=== PATIENT | female | born 1950 | race Caucasian/White ===

== ENCOUNTER 2016-08-23 13:30 | Emergency (ER) | payer OTHER ==
[~2016-08-23] VITALS: Ht 167.6 cm; Wt 81.6 kg
[~2016-08-23 13:30] MED LIST: ASPIRIN CHILDRE80 MG; CELEXA10 MG; HYDROCHLOROTHIA25 MG PO; HYDROCODONE BIT1 T11 PO; LISINOPRIL20 MG; NAPROSYN500 MG PO; NORVASC10 MG; VICODIN ES 7501 TA1 PO; ZOFRAN8 MG PO
[2016-08-23] MEDS ORDERED: PLAVIX75 M1 PO (13:37)
[2016-08-23] MEDS ORDERED: VITAMINS FOR HA1 CAP PO (13:38)
[2016-08-23] MEDS ORDERED: TRIAMTERENE AND1 TAB PO (13:39)
[2016-08-23 14:01] LABS: BASO % 0.3 % (0.0-1.0); EOS # 0.2 10*3/uL (0.0-0.4); EOS % 2.6 % (1.0-4.0); HEMATOCRIT 39.9 % (37.0-47.0); HEMOGLOBIN 13.5 g/dl (12.0-16.0); LYMPH # 1.6 10*3/uL (1.3-4.4); LYMPH % 20.5 % (27.0-41.0); MEAN CELL VOLUME 93.9 fl (81.0-99.0); MEAN CORPUSCULAR HGB 31.8 pg (27.0-31.0); MEAN CORPUSCULAR HGB CONC 33.8 g/dl (33.0-37.0); MONO % 12.7 % (3.0-9.0); NEUT # 4.9 10*3/uL (2.3-7.9); NEUT % 63.8 % (47.0-73.0); PLATELET COUNT AUTOMATED 248 10*3/uL (130-400); RED BLOOD COUNT 4.25 10*6/uL (4.10-5.10); RED CELL DISTRI WIDTH 13.2 % (0-14.5); WHITE BLOOD COUNT 7.6 10*3/uL (4.8-10.8)
[2016-08-23 14:15] LABS: ALBUMIN 3.2 gm/dl (3.1-4.5); BILIRUBIN, TOTAL 0.2 mg/dl (0.2-1.0); POTASSIUM 3.9 mmol/L (3.5-5.1); TOTAL PROTEIN 6.3 gm/dL (6.4-8.2)
[2016-08-23] MEDS ORDERED: LOMOTIL 0.025 M1 TA1 PO (14:40)
== END 2016-08-23 15:29 | disposition home or self-care (01) ==
LOC: ED 13:30
PROVIDERS: Nurse Practitioner Family
DX: E86.0 Dehydration (principal); R19.7 Diarrhea, unspecified; R03.0 Elevated blood-pressure reading, without diagnosis of hypertension; Z79.899 Other long term (current) drug therapy

== ENCOUNTER → 2016-08-27 | Outpatient (CLI) | payer OTHER ==
[~2016-08-27] MED LIST changes: +CIPRO500 MG PO; +LOMOTIL 0.025 M1 TA1 PO; +PLAVIX75 M1 PO; +TRIAMTERENE AND1 TAB PO; +VITAMINS FOR HA1 CAP PO
== END | disposition home or self-care (01) ==
LOC: RAD 13:23
DX: Z13.820 Encounter for screening for osteoporosis (principal); N95.9 Unspecified menopausal and perimenopausal disorder; M48.56XA Collapsed vertebra, not elsewhere classified, lumbar region, initial encounter for fracture

== ENCOUNTER 2016-08-29 18:16 | Emergency (ER) | payer OTHER ==
[~2016-08-29] VITALS: Ht 170.1 cm; Wt 81.6 kg
[~2016-08-29 18:16] MED LIST changes: -CIPRO500 MG PO
[2016-08-29 18:51] LABS: BASO % 0.4 % (0.0-1.0); EOS # 0.3 10*3/uL (0.0-0.4); EOS % 2.6 % (1.0-4.0); HEMATOCRIT 42.7 % (37.0-47.0); HEMOGLOBIN 14.4 g/dl (12.0-16.0); LYMPH # 2.6 10*3/uL (1.3-4.4); LYMPH % 25.9 % (27.0-41.0); MEAN CELL VOLUME 94.3 fl (81.0-99.0); MEAN CORPUSCULAR HGB 31.8 pg (27.0-31.0); MEAN CORPUSCULAR HGB CONC 33.7 g/dl (33.0-37.0); MONO # 0.8 10*3/uL (0.1-1.0); NEUT # 6.3 10*3/uL (2.3-7.9); NEUT % 62.9 % (47.0-73.0); PLATELET COUNT AUTOMATED 307 10*3/uL (130-400); RED BLOOD COUNT 4.53 10*6/uL (4.10-5.10); RED CELL DISTRI WIDTH 13.2 % (0-14.5)
[2016-08-29 19:06] LABS: ALBUMIN 3.7 gm/dl (3.1-4.5); ALKALINE PHOSPHATASE 120 U/L (45-117); BILIRUBIN, TOTAL 0.3 mg/dl (0.2-1.0); BUN 16 mg/dl (7-24); CARBON DIOXIDE 28 mmol/L (21-32); CHLORIDE 99 mmol/L (98-107); EST GLOM FILT AFRICAN AMERICAN > 60 ml/min; GLUCOSE 102 mg/dL (65-99); POTASSIUM 4.9 mmol/L (3.5-5.1); SGOT/AST 27 IU/L (3-35); SGPT/ALT 50 U/L (12-78); SODIUM 137 mmol/L (136-145); TOTAL PROTEIN 7.1 gm/dL (6.4-8.2)
[2016-08-29] MEDS ORDERED: CIPRO500 MG PO (19:32)
[2016-08-29 19:57] LABS: BILIRUBIN NEGATIVE (NEGATIVE); BLOOD NEGATIVE (NEGATIVE); CLARITY SL CLOUDY (CLEAR); COLOR YELLOW (YELLOW); GLUCOSE NEGATIVE (NEGATIVE); KETONE NEGATIVE (NEGATIVE); LEUKO ESTERASE 3+ (NEGATIVE); NITRITE NEGATIVE (NEGATIVE); PH 5.5 (5.0-9.0); PROTEIN NEGATIVE (NEGATIVE); UROBILINOGEN 0.2 E.U./dl (0.2-1.0)
[2016-08-29 20:04] LABS: BACTERIA 1+; URINE REFLEX COMMENT YES (NO)
[2016-08-29 20:05] LABS: WBC 41-50 wbc/hpf (0-5)
== END 2016-08-29 19:44 | disposition home or self-care (01) ==
LOC: ED 18:16
PROVIDERS: Registered Nurse
DX: R19.7 Diarrhea, unspecified (principal); N30.00 Acute cystitis without hematuria; Z79.899 Other long term (current) drug therapy

== ENCOUNTER → 2016-08-31 | Outpatient (CLI) | payer OTHER ==
[~2016-08-31] MED LIST changes: +CIPRO500 MG PO
[2016-09-02 18:09] LABS: FECAL WBC Final report (None Seen)
== END | disposition home or self-care (01) ==
LOC: LAB 07:57
PROVIDERS: Registered Nurse
DX: R19.7 Diarrhea, unspecified (principal)

== ENCOUNTER → 2016-09-10 | Outpatient (CLI) | payer OTHER | END | disposition home or self-care (01) | LOC: MRI 14:45 | DX: S32.030A Wedge compression fracture of third lumbar vertebra, initial encounter for closed fracture (principal); M47.896 Other spondylosis, lumbar region; M48.06 Spinal stenosis, lumbar region ==

== ENCOUNTER → 2019-02-01 | Outpatient (CLI) | payer MEDICARE, OTHER ==
[~2019-02-01] MED LIST changes: -ASPIRIN CHILDRE80 MG; +ASPIRIN CHILDRE81 MG PO; -CELEXA10 MG; +CELEXA10 MG PO; +DOXYCYCLINE100 M3 PO; +FUROSEMIDE20 M1 PO; -LISINOPRIL20 MG; +LISINOPRIL20 MG PO; +LOSARTAN POTAS100 M1 PO; -NORVASC10 MG; +NORVASC10 MG PO; +POTASSIUM CHLO10 ME5 PO; +PRAVASTATIN SOD40 MG PO; +PREDNISONE10 MG PO
== END | disposition home or self-care (01) ==
LOC: RAD 10:26
DX: R09.89 Other specified symptoms and signs involving the circulatory and respiratory systems (principal)

== ENCOUNTER 2019-02-04 07:54 | Inpatient (IN) | payer MEDICARE, OTHER ==
[~2019-02-04] VITALS: Ht 167.6 cm; Wt 83.1 kg
--- NOTE | ~2019-02-04 | CON ---
[place], [place] REPORT OF CONSULTATION NAME: CATIE BARNARD [facility] #: [id number] UNIT #: [id number] ROOM: 528 DOCTOR: CASSANDRA GROSS MD BIRTHDATE: [birth year] DOS: 02/05/2019 PULMONARY CONSULTATION, EVALUATION AND MANAGEMENT CONSULTATION REQUESTED BY: Hospitalist. REASON FOR CONSULTATION: For the assessment of cough, abnormal CT scan of the chest findings. HISTORY OF PRESENT ILLNESS: This is a 68-year-old white female patient who has been noted ill since 09/2018. The patient has been reporting a cough with minimal sputum expectoration. The coughing has been noted frequently. She has also developed symptoms of increased wheezing with chest tightness and shortness of breath. She presented to the Emergency Room yesterday and has been admitted to the hospital for further care. The cough has been noted with minimal amount of sputum expectoration at the present time. She has been treated with several times with corticosteroids and the antibiotic with partial reduction in respiratory symptoms, but the respiratory symptoms returned and has not completely resolved for the past few months. REVIEW OF SYSTEMS: CONSTITUTIONAL SYMPTOMS: Fatigue and tiredness noted without any symptoms of fever or chills. EYES: Denies burning, redness, or tenderness. EARS, NOSE, THROAT SYMPTOMS: Denies sore throat, hoarseness, otalgia, postnasal drainage or epistaxis. CARDIOVASCULAR SYSTEM: Denies angina pain, edema, or pain of the lower extremities. GASTROINTESTINAL SYMPTOMS: Denies dysphagia, nausea, vomiting, diarrhea, abdominal pain, hematemesis, melena, or hematochezia. SKIN: Denies abnormal lesions or rashes. CENTRAL NERVOUS SYSTEM: No dizziness, headache, diplopia, or syncopal episodes. The patient has been known with past history of CVA. PAST MEDICAL HISTORY: Known with: 1. History of essential hypertension. 2. Osteoarthritis. 3. Psoriasis. 4. History of depression. 5. Past history of CVA without any known residual neurologic deficit. SOCIAL HISTORY: The patient was noted nonsmoker lifetime. Denies any history of alcohol use or illicit drug use. She does have 1 daughter. PAST SURGICAL HISTORY: Reported as: 1. History of hysterectomy. 2. Hip replacement. FAMILY HISTORY: The patient's father with complication of Parkinsonism. Mother with complications of congestive heart failure and coronary artery [place], [place] REPORT OF CONSULTATION NAME: CATIE BARNARD UNIT #: [id number] ROOM: 528 DOCTOR: PASCUAL HOGUE MD,CASSANDRA BIRTHDATE: [birth year] disease. HOME MEDICATIONS: Listed as aspirin, ciprofloxacin, citalopram, Plavix, Lomotil, lisinopril, multivitamin, triamterene/hydrochlorothiazide combination and multivitamins. MEDICATIONS: Current medications, which were administered on this hospitalization were noted as use of lisinopril, citalopram, Norvasc, hydrochlorothiazide with triamterene, Plavix, Lovenox, Mucinex, Solu-Medrol 40 mg IV b.i.d., DuoNeb q.6 hours, Levaquin, and some other meds. DRUG ALLERGIES: No known drug allergies. PHYSICAL EXAMINATION: GENERAL: A 68-year-old female patient who has been noted currently awake and alert without any distress. Height of 5 feet 6 inches, weight 183 pounds, BMI 29.5. VITAL SIGNS: For the patient recorded as a normal temperature, respiratory rate 20, heart rate 106, blood pressure 132/60. Pulse oxygen saturation recorded at room air 96% saturation. HEENT: Examination shows head was atraumatic. Eyes nonicterus. NECK: Supple. CARDIOVASCULAR SYSTEM: S1, S2 audible. LUNGS: The patient had reduction in breath sounds. There were no wheezes or crackles. ABDOMEN: Soft, nontender. Bowel sounds present. EXTREMITIES: No new change. MUSCULOSKELETAL: Without acute deformity. VISIBLE SKIN: No lesions and rashes. CENTRAL NERVOUS SYSTEM: No apparent focal neurologic deficit. LABORATORY DATA: The patient's CBC done yesterday; WBC count normal, hemoglobin and hematocrit normal, platelet count normal. PT/PTT noted as normal. Lactic acid 1.1. CMP that was done yesterday noted as normal BUN and creatinine, sodium 135. Remaining electrolytes were normal. Urine culture noted no bacterial growth from yesterday. CBC this morning; WBC count was normal. PT/PTT repeated again normal today. CMP this morning, sodium was still noted low at 124. The chest x-ray that was done on 02/01/2019 ordered by her primary care physician was noted without any acute visible pulmonary infiltrates. Chest x-ray yesterday shows no acute abnormalities. CT scan of the chest that was done yesterday was personally reviewed. There was no evidence of pulmonary embolism. The patient was noted with a small pulmonary nodule 5 mm or less scattered in the lung, but mostly in the subpleural distribution noted in the lungs bilaterally. In addition to that, there was lymphadenopathy noted in the mediastinum as well as in the hilar area bilaterally as well, which may be considered pathological. Some lymph nodes were also described present in the left axilla as well. Small hiatal hernia was also seen. IMPRESSION: 1. The patient who has been currently admitted to the hospital with progressive [place], [place] REPORT OF CONSULTATION NAME: CATIE BARNARD UNIT #: [id number] ROOM: 528 DOCTOR: PASCUAL HOGUE MD,[facility] BIRTHDATE: [birth year] cough, which has been noted chronic several months with suspected mucus impaction of the airways. Lymphadenopathy, small nodule at least with the distribution of the nodule. Lymphadenopathy, possible consideration of sarcoidosis; however, malignant conditions should be considered and excluded appropriately in view of the hyponatremia. Other causes of hyponatremia, which was induced by the hydrochlorothiazide as well. 2. The patient with cough, which has been noted partially could be contributed because of the lisinopril. 3. Possible consideration of acute asthmatic bronchitis as well. PLAN OF MANAGEMENT: At this time, Lisinopril will be discontinued. Agree with the use of steroids, bronchodilator, Mucinex and other treatment, bronchoscopy, which will be therapeutic was planned to be done on Friday morning. N.p.o. past midnight of Friday will be obtained. Further workup will be completed for the lymph node and the nodule as an outpatient. Consideration for biopsy of the lymph node and mediastinoscopy as well. Other therapy, plan of management. Additional treatment changes will be made based on progression of the illness. Consider discontinuation of the hydrochlorothiazide and monitoring of the sodium. If necessary, obtain the consultation from the Nephrology services as well. Usual care, other supportive plan of therapy, care plan for treatment and management. Additional treatment changes continued to be made based on progression of the illness. The assessment and management of her current condition was discussed with the patient's daughter in detail in the room of the patient. CASSANDRA GARNER MD CM:CONSTR:REPORT OF CONSULTATION 1155 02/05/19 2236 interface
--- NOTE | ~2019-02-04 | PR ---
[place], [place] PROGRESS NOTE NAME: CATIE BARNARD UNIT #: [id number] ROOM: 528 DOCTOR: PASCUAL HOGUE MD,CASSANDRA BIRTHDATE: [birth year] DOS: 02/09/2019 PULMONARY PROGRESS NOTE SUBJECTIVE: She has reported remarkable improvement and resolution of cough post-bronchoscopy. She has not been noted with symptoms of chest pain or wheezing. Denies symptoms of headache or diplopia. OBJECTIVE: VITAL SIGNS: For the patient which were recorded this morning shows a normal temperature, respiratory rate recorded as 20, heart rate of 85, blood pressure 150/72. Pulse oxygen saturation at rest on room air was 96% saturation recorded. HEENT: Examination shows head was atraumatic. Eyes nonicterus. NECK: Supple. CARDIOVASCULAR SYSTEM: S1, S2 is audible. LUNGS: Noted without any wheeze or crackles. ABDOMEN: Soft, nontender. EXTREMITIES: No new change. LABORATORY DATA: Culture of the bronchial washing noted normal jacques, preliminary. Final cultures are pending. Many white blood cells, moderate gram-positive cocci in chains and clusters and few gram-negative bacilli. IMPRESSION: 1. The patient with a significant improvement noted in acute tracheobronchitis after extraction of the mucus. 2. Pulmonary nodules with lymphadenopathy. PLAN OF MANAGEMENT: No changes in the plan of care at this time. Continue the patient's current therapy as in progress. Usual care, other supportive plan of management, care plan of treatment. CASSANDRA GARNER MD CM:PNTRANS [id number] CASSANDRA HOGUE MD 02/09/19 7647 interface
--- NOTE | ~2019-02-04 | PR ---
[place], [place] PROGRESS NOTE [id number] UN[facility] #: [id number] ROOM: 528 DOCTOR: PASCUAL HOGUE MD,CASSANDRA BIRTHDATE: [birth year] DOS: 02/07/2019 PULMONARY PROGRESS NOTE SUBJECTIVE: The patient has been noted comfortable at this time, sitting on the chair, stating she has been noted symptoms of sputum expectoration, other time, she could not expectorate sputum, which is stuck in the upper portion of the chest. Denies symptoms of nausea, vomiting, or diarrhea. Denies symptoms of headache or diplopia. OBJECTIVE: VITAL SIGNS: For the patient which were recorded showed the temperature noted normal, respiratory rate 20, heart rate 96, blood pressure 146/65. The pulse oxygen saturation at rest on room air 93% saturation recorded. HEENT: Examination shows head was atraumatic. Eyes nonicterus. NECK: Supple. CARDIOVASCULAR: S1, S2 audible. LUNGS: The patient decreased breath sounds, but there were no wheeze or crackles. ABDOMEN: Soft, nontender. Bowel sounds present. EXTREMITIES: No new change. LABORATORY DATA: BMP: Sodium 131, potassium was normal. BUN normal, creatinine was normal as well. IMPRESSION: Acute tracheobronchitis, mucus impaction and pulmonary nodules with enlargement of the lymph nodes in the mediastinum. PLAN OF MANAGEMENT: No changes in the plan of management at this time. Continue the patient's current plan of care as in progress. Bronchoscopy was planned for the patient to be done tomorrow morning. CASSANDRA GARNER MD CM:PNTRANS [id number] CASSANDRA HOGUE MD 02/07/19 1647 interface
--- NOTE | ~2019-02-04 | EKG ---
[place], [place] ELECTROCARDIOGRAM REPORT NAME: CATIE BARNARD UNIT #: [id number] ROOM: 528 DOCTOR: CHAPITO DRAFT REPORT BIRTHDATE: [birth year] [facility] Test Date: 2019-02-04 Test Time: 08:34:19 Pat Name: CATIE BARNARD Department: Room: 528 Gender: F [employer]: : 1950 Requested By: JUAN CARLOS MCINTOSH Order Number: [id number] Reading MD: Tootie Lewis MD Measurements Intervals [place] Rate: 85 P: 63 NC: 177 QRS: 77 QRSD: 90 T: 58 QT: 379 QTc: 451 Interpretive Statements Sinus rhythm Borderline ST elevation, anterolateral leads Baseline wander in lead(s) II,III,aVL,aVF Electronically Signed On 02-07-2019 8:46:26 PST by Tootie Lewis MD CM:EKGRPT:ELECTROCARDIOGRAM REPORT JUAN CARLOS [place] DRAFT REPORT JUAN CARLOS MCINTOSH DO
--- NOTE | ~2019-02-04 | PR ---
[place], [place] PROGRESS NOTE [id number] #: [id number] ROOM: 528 DOCTOR: PASCUAL HOGUE MD,CASSANDRA BIRTHDATE: [birth year] DOS: 02/08/2019 SUBJECTIVE: The patient has been noted essentially the same, nonproductive cough, minimal sputum expectoration. Denies symptoms of chest pain. There were no symptoms of shortness of breath or wheezing stated by the patient. Denies headache or diplopia. Symptoms of nausea or vomiting, general weakness and fatigue reported. Remaining systems were reviewed. They were noted all negative. She is n.p.o. past midnight bronchoscopy to be done today. OBJECTIVE: VITAL SIGNS: Normal temperature, respiratory rate 18, heart rate 89, blood pressure 168/91. Pulse ox saturation recorded as 95% saturation at rest on room air. HEENT: Examination shows head was atraumatic. Eyes nonicterus. NECK: Supple. CARDIOVASCULAR: S1, S2 audible. LUNGS: Noted without any crackles, rhonchi, or wheezing. The breaths are noted [id number] diminished bilaterally. ABDOMEN: Soft, nontender. Bowel sounds present. EXTREMITIES: The patient noted without any acute edema. MUSCULOSKELETAL: Noted without any acute deformities. CENTRAL NERVOUS SYSTEM: The patient noted cranial nerves 2-12 intact. IMPRESSION: The patient who has been currently noted with severe cough, acute bronchitis, mucus impaction, preop for bronchoscopy today for that reason as the patient noted improvement with maximal medical management. PLAN OF MANAGEMENT: Proceed with the patient's current plan of therapy with the bronchoscopy. Any treatment changes necessary will be done after the bronchoscopy. CASSANDRA GARNER MD CM:PNTRANS [id number] CASSANDRA HOGUE MD 02/08/19 1725 interface
--- NOTE | ~2019-02-04 | PR ---
[place], [place] PROGRESS NOTE [id number] #: [id number] ROOM: 528 DOCTOR: PASCUAL HOGUE MD,CASSANDRA BIRTHDATE: [birth year] DOS: 02/06/2019 PULMONARY PROGRESS NOTE SUBJECTIVE: She was sitting this morning on the bed at the time of the assessment. She has not been noted any symptoms of chest pain, fever or chills. The patient does have a cough, the patient stated that she has been expectorating some sputum. She has expectorated significant sputum in the last 24 hours. OBJECTIVE: The physical examination otherwise noted VITAL SIGNS: Normal temperature, respiratory rate 18, heart rate 96, blood pressure 134/51. The pulse oxygen saturation recorded as 94% saturation on room air. HEENT: Examination shows head was atraumatic. Eyes nonicterus. NECK: Supple. CARDIOVASCULAR: S1, S2 is audible. LUNGS: Noted without any wheezing or crackles. ABDOMEN: Soft, nontender. Bowel sounds present. EXTREMITIES: No new changes. IMPRESSION: 1. Acute tracheobronchitis, suspected mucus impaction of the airways. 2. Lymphadenopathy with a small subcentimeter bilateral pulmonary nodules usually peripheral distribution with a differential of sarcoidosis, chronic hypersensitivity, pneumonitis or others remains in consideration. PLAN OF MANAGEMENT: No changes in plan of management. She was planned to have bronchoscopy done on Friday morning. Continuation of current plan of management as in progress usual care, other supportive plan of treatment and therapies. CASSANDRA GARNER MD CM:PNTRANS [id number] CASSANDRA HOGUE MD 02/06/192232 interface
--- NOTE | ~2019-02-04 | PROC NOTE ---
[place], [place] PROCEDURE NOTE NAME: CATIE BARNARD UNIT #: [id number] ROOM: 528 DOCTOR: PASCUAL HOGUE MD,CASSANDRA BIRTHDATE: [birth year] DOS: 02/08/2019 BRONCHOSCOPY NOTE PROCEDURE: Bronchoscopy. PREOPERATIVE DIAGNOSES: Severe nonresolving cough with maximal medical therapy for the past several days. POSTOPERATIVE DIAGNOSES: Very severe mucus impaction noted in the bronchus subsegment bilaterally. There were no endobronchial obstructive lesion. Finding of tracheobronchitis was also noted. Procedure was done under local MAC. PROCEDURE DESCRIPTION: Informed consent obtained for the patient. The patient brought to the OR and placed in supine position. Conscious sedation was administered in the supine position. The bronchoscope was advanced to airway into laryngeal area. Epiglottis and vocal cords were seen. Vocal moved symmetrical movements. Bronchoscope advanced vocal cord and tracheal lumen. Tracheal lumen was identified. The tracheal lumen noted with moderate thick mucoid secretion with some purulent secretions suctioned out the fermín level. Severe impaction of the endobronchial subsegment almost all of them noted in right middle, right lower, left upper, lingula, lower lobe. Right upper lobe does not show any mucus impaction. All the impaction of the mucus removed from the bronchus subsegment bilaterally without any difficulty. Postoperative findings will be discussed with the patient once the patient recovers the effects of acute sedation. No complications noted during or after the procedure. CASSANDRA GARNER MD CM:PROCNOTE:PROCEDURE NOTE [phone] CASSANDRA HOGUE MD
[~2019-02-04 07:54] MED LIST changes: -DOXYCYCLINE100 M3 PO; -FUROSEMIDE20 M1 PO; -LOSARTAN POTAS100 M1 PO; -POTASSIUM CHLO10 ME5 PO; -PRAVASTATIN SOD40 MG PO; -PREDNISONE10 MG PO
[2019-02-04 08:02] VITALS: BP 166/76
[2019-02-04 08:38] LABS: BASO % 0.4 % (0.0-1.0); EOS % 12.9 % (1.0-4.0); HEMATOCRIT 46.4 % (37.0-47.0); HEMOGLOBIN 15.8 g/dl (12.0-16.0); LYMPH # 0.9 10*3/uL (1.3-4.4); LYMPH % 11.1 % (27.0-41.0); MEAN CELL VOLUME 93.7 fl (81.0-99.0); MEAN CORPUSCULAR HGB 31.9 pg (27.0-31.0); MEAN CORPUSCULAR HGB CONC 34.1 g/dl (33.0-37.0); MEAN PLATELET VOLUME 9.4 fl (9.6-12.3); MONO # 0.7 10*3/uL (0.1-1.0); MONO % 8.5 % (3.0-9.0); NEUT # 5.3 10*3/uL (2.3-7.9); NEUT % 66.8 % (47.0-73.0); PLATELET COUNT AUTOMATED 235 10*3/uL (130-400); RED BLOOD COUNT 4.95 10*6/uL (4.10-5.10); WHITE BLOOD COUNT 7.9 10*3/uL (4.8-10.8)
[2019-02-04 08:50] LABS: ACT PARTIAL THROMBO TIME 26.2 SECONDS (20.0-32.1); INTERNATIONAL NORM RATIO 0.9 (2.0-3.5)
[2019-02-04 08:53] LABS: ALBUMIN 3.7 gm/dl (3.1-4.5); ALKALINE PHOSPHATASE 108 U/L (45-117); BUN 20 mg/dl (7-24); CHLORIDE 92 mmol/L (98-107); CREATININE 0.67 mg/dL (0.55-1.02); LIPASE 92 U/L (73-393); POTASSIUM 4.2 mmol/L (3.5-5.1); SGOT/AST 27 IU/L (3-35); SGPT/ALT 27 U/L (12-78); SODIUM 125 mmol/L (136-145); TOTAL PROTEIN 7.3 gm/dL (6.4-8.2)
[2019-02-04 08:58] LABS: TROPONIN I < 0.015 ng/ml (<0.045)
[2019-02-04 09:48] LABS: BILIRUBIN NEGATIVE (NEGATIVE); BLOOD NEGATIVE (NEGATIVE); CLARITY SL CLOUDY (CLEAR); COLOR YELLOW (YELLOW); GLUCOSE NEGATIVE (NEGATIVE); KETONE NEGATIVE (NEGATIVE); LEUKO ESTERASE NEGATIVE (NEGATIVE); NITRITE NEGATIVE (NEGATIVE); PH 6.5 (5.0-9.0); SPECIFIC GRAVITY <= 1.005 (1.005-1.030); UROBILINOGEN 0.2 E.U./dl (0.2-1.0)
[2019-02-04 09:58] LABS: BACTERIA 2+
[2019-02-04 11:09] VITALS: BP 147/73
[2019-02-04 11:50] VITALS: BP 141/79
[2019-02-04 16:00] VITALS: BP 138/64
[2019-02-04 20:00] VITALS: BP 138/61
[2019-02-05] VITALS: BP 145/65
[2019-02-05] MEDS ORDERED: POTASSIUM CHLO10 ME5 PO (01:13)
[2019-02-05] MEDS ORDERED: FUROSEMIDE20 M1 PO (01:14)
[2019-02-05] MEDS ORDERED: PRAVASTATIN SOD40 MG PO (01:14)
[2019-02-05 06:21] LABS: BASO % 0.2 % (0.0-1.0); EOS # 0.1 10*3/uL (0.0-0.4); EOS % 2.4 % (1.0-4.0); HEMATOCRIT 39.4 % (37.0-47.0); HEMOGLOBIN 13.7 g/dl (12.0-16.0); MEAN CELL VOLUME 91.8 fl (81.0-99.0); MEAN CORPUSCULAR HGB 31.9 pg (27.0-31.0); MEAN CORPUSCULAR HGB CONC 34.8 g/dl (33.0-37.0); MEAN PLATELET VOLUME 9.6 fl (9.6-12.3); MONO # 0.2 10*3/uL (0.1-1.0); MONO % 3.1 % (3.0-9.0); NEUT # 4.2 10*3/uL (2.3-7.9); NEUT % 75.4 % (47.0-73.0); PLATELET COUNT AUTOMATED 219 10*3/uL (130-400); RED BLOOD COUNT 4.29 10*6/uL (4.10-5.10); RED CELL DISTRI WIDTH 11.9 % (0-14.5); WHITE BLOOD COUNT 5.5 10*3/uL (4.8-10.8)
[2019-02-05 06:32] LABS: ACT PARTIAL THROMBO TIME 26.5 SECONDS (20.0-32.1); INTERNATIONAL NORM RATIO 0.9 (2.0-3.5)
[2019-02-05 06:38] LABS: ALBUMIN 3.2 gm/dl (3.1-4.5); ALKALINE PHOSPHATASE 89 U/L (45-117); BUN 13 mg/dl (7-24); CHLORIDE 90 mmol/L (98-107); CHOLESTEROL 173 mg/dL (<200); CREATININE 0.65 mg/dL (0.55-1.02); FREE T4 1.06 ng/dl (0.76-1.46); HDL CHOLESTEROL 61 mg/dl (40-60); LDL CHOLESTEROL 106 mg/dL (9-159); PHOSPHOROUS 2.3 mg/dL (2.5-4.9); POTASSIUM 3.5 mmol/L (3.5-5.1); SGOT/AST 21 IU/L (3-35); SGPT/ALT 27 U/L (12-78); SODIUM 124 mmol/L (136-145); TOTAL PROTEIN 6.2 gm/dL (6.4-8.2); TRIGLYCERIDES 32 mg/dl (<150); VLDL CHOLESTEROL 6 mg/dL (6-40)
[2019-02-05 07:22] LABS: VITAMIN D, 25-HYDROXY 50.5 ng/mL (30-100)
[2019-02-05 08:00] VITALS: BP 132/60
[2019-02-05 12:00] VITALS: BP 129/57
[2019-02-05 16:00] VITALS: BP 133/54
[2019-02-05 20:00] VITALS: BP 118/80
[2019-02-06] VITALS: BP 123/58
[2019-02-06 05:47] LABS: BASO % 0.1 % (0.0-1.0); EOS % 0.1 % (1.0-4.0); HEMATOCRIT 40.1 % (37.0-47.0); HEMOGLOBIN 13.9 g/dl (12.0-16.0); LYMPH # 1.5 10*3/uL (1.3-4.4); LYMPH % 12.2 % (27.0-41.0); MEAN CELL VOLUME 92.4 fl (81.0-99.0); MEAN CORPUSCULAR HGB CONC 34.7 g/dl (33.0-37.0); MEAN PLATELET VOLUME 9.3 fl (9.6-12.3); MONO # 0.5 10*3/uL (0.1-1.0); MONO % 4.3 % (3.0-9.0); NEUT # 10.1 10*3/uL (2.3-7.9); NEUT % 82.9 % (47.0-73.0); PLATELET COUNT AUTOMATED 234 10*3/uL (130-400); RED BLOOD COUNT 4.34 10*6/uL (4.10-5.10); RED CELL DISTRI WIDTH 12.3 % (0-14.5); WHITE BLOOD COUNT 12.1 10*3/uL (4.8-10.8)
[2019-02-06 06:01] LABS: BUN 12 mg/dl (7-24); CHLORIDE 101 mmol/L (98-107); SODIUM 133 mmol/L (136-145)
[2019-02-06 06:03] LABS: POTASSIUM 4.4 mmol/L (3.5-5.1)
[2019-02-06 08:00] VITALS: BP 134/51
[2019-02-06 12:00] VITALS: BP 151/62
[2019-02-06 16:00] VITALS: BP 131/58
[2019-02-06 20:00] VITALS: BP 141/70
[2019-02-06 22:00] VITALS: BP 141/70
[2019-02-07 06:28] LABS: BUN 12 mg/dl (7-24); CHLORIDE 98 mmol/L (98-107); CREATININE 0.54 mg/dL (0.55-1.02); POTASSIUM 4.2 mmol/L (3.5-5.1); SODIUM 131 mmol/L (136-145)
[2019-02-07 08:00] VITALS: BP 142/59
[2019-02-07 11:46] VITALS: BP 143/65
[2019-02-07 15:46] VITALS: BP 131/62
[2019-02-07 20:00] VITALS: BP 138/69
[2019-02-08] VITALS (9 sets, daily range): BP systolic 132–178; BP diastolic 58–102
[2019-02-08 06:42] LABS: HEMATOCRIT 43.8 % (37.0-47.0); HEMOGLOBIN 14.7 g/dl (12.0-16.0); MEAN CELL VOLUME 93.6 fl (81.0-99.0); MEAN CORPUSCULAR HGB 31.4 pg (27.0-31.0); MEAN CORPUSCULAR HGB CONC 33.6 g/dl (33.0-37.0); MEAN PLATELET VOLUME 9.5 fl (9.6-12.3); PLATELET COUNT AUTOMATED 299 10*3/uL (130-400); RED BLOOD COUNT 4.68 10*6/uL (4.10-5.10); RED CELL DISTRI WIDTH 12.5 % (0-14.5)
[2019-02-08 07:00] LABS: BUN 12 mg/dl (7-24); CHLORIDE 97 mmol/L (98-107); CREATININE 0.64 mg/dL (0.55-1.02); POTASSIUM 4.4 mmol/L (3.5-5.1); SODIUM 130 mmol/L (136-145)
[2019-02-08 07:50] LABS: ATYPICAL LYMPHS 7 % (0-0); PLATELET SUFFICIENCY NORMAL (NORMAL); TOTAL CELLS COUNTED 100 #CELLS
[2019-02-09] VITALS: BP 113/52
[2019-02-09 08:00] VITALS: BP 150/72
[2019-02-09] MEDS ORDERED: DOXYCYCLINE100 M3 PO (13:00)
[2019-02-09] MEDS ORDERED: PREDNISONE10 MG PO (13:00)
[2019-02-09] MEDS ORDERED: LOSARTAN POTAS100 M1 PO (13:07)
[2019-02-09 18:07] LABS: ACID FAST SPEC PROCESSING Concentration (.)
== END 2019-02-09 13:49 | disposition home or self-care (01) | DRG 166 ==
LOC: ED 07:54 → EDHOLD 10:22 → 5E 10:22
PROVIDERS: Emergency Medicine; Hospitalist; Internal Medicine; Internal Medicine Critical Care Medicine; ADMIT Internal Medicine
DX: J20.9 Acute bronchitis, unspecified (principal); J18.9 Pneumonia, unspecified organism; E87.1 Hypo-osmolality and hyponatremia; R91.8 Other nonspecific abnormal finding of lung field; E87.8 Other disorders of electrolyte and fluid balance, not elsewhere classified; R82.71 Bacteriuria; I10 Essential (primary) hypertension; R59.0 Localized enlarged lymph nodes; L40.9 Psoriasis, unspecified; K44.9 Diaphragmatic hernia without obstruction or gangrene; I70.0 Atherosclerosis of aorta; I25.10 Atherosclerotic heart disease of native coronary artery without angina pectoris; M47.894 Other spondylosis, thoracic region; M15.9 Polyosteoarthritis, unspecified; Z96.649 Presence of unspecified artificial hip joint; R53.83 Other fatigue; F32.9 Major depressive disorder, single episode, unspecified; T50.2X5A Adverse effect of carbonic-anhydrase inhibitors, benzothiadiazides and other diuretics, initial encounter; E78.5 Hyperlipidemia, unspecified; Z86.73 Personal history of transient ischemic attack (TIA), and cerebral infarction without residual deficits; Z90.710 Acquired absence of both cervix and uterus; Z82.49 Family history of ischemic heart disease and other diseases of the circulatory system; Z82.0 Family history of epilepsy and other diseases of the nervous system; Z79.02 Long term (current) use of antithrombotics/antiplatelets; Z79.899 Other long term (current) drug therapy; Y92.89 Other specified places as the place of occurrence of the external cause

== ENCOUNTER → 2019-09-14 | Outpatient (CLI) | payer MEDICARE ==
[~2019-09-14] MED LIST changes: +DOXYCYCLINE100 M3 PO; +FUROSEMIDE20 M1 PO; +LOSARTAN POTAS100 M1 PO; +POTASSIUM CHLO10 ME5 PO; +PRAVASTATIN SOD40 MG PO; +PREDNISONE10 MG PO
[2019-09-14 10:08] LABS: BUN 15 mg/dl (7-24); CREATININE 0.76 mg/dL (0.55-1.02)
== END | disposition home or self-care (01) ==
LOC: LAB 00:59 → CT 10:00
PROVIDERS: Internal Medicine Critical Care Medicine
DX: Z01.818 Encounter for other preprocedural examination (principal); R91.1 Solitary pulmonary nodule; R59.0 Localized enlarged lymph nodes

== ENCOUNTER → 2020-02-14 | Outpatient (CLI) | payer MEDICARE | END | disposition home or self-care (01) | LOC: RAD 05:20 | PROVIDERS: ATTEND Physician Assistant | DX: M81.0 Age-related osteoporosis without current pathological fracture (principal); M85.88 Other specified disorders of bone density and structure, other site ==

== ENCOUNTER → 2020-08-10 | Outpatient (CLI) | payer MEDICARE, OTHER ==
[~2020-08-10] MED LIST changes: +IBESARTAN PO; +SYMB160 INH
[2020-08-10 09:06] VITALS: BP 151/68
== END | disposition home or self-care (01) ==
LOC: INJECTION 08-08 10:30
PROVIDERS: ATTEND Physician Assistant
DX: M81.0 Age-related osteoporosis without current pathological fracture (principal)

== ENCOUNTER → 2020-09-19 | Outpatient (CLI) | payer MEDICARE, OTHER | END | disposition home or self-care (01) | LOC: CT 09-18 10:00 | PROVIDERS: ATTEND Internal Medicine Critical Care Medicine | DX: R91.8 Other nonspecific abnormal finding of lung field (principal); R59.0 Localized enlarged lymph nodes; J45.40 Moderate persistent asthma, uncomplicated ==

== ENCOUNTER → 2021-06-05 | Outpatient (CLI) | payer MEDICARE, OTHER ==
[2021-06-05 08:35] VITALS: BP 142/65
== END | disposition home or self-care (01) ==
LOC: INJECTION 08:21
PROVIDERS: ATTEND Physician Assistant
DX: M81.0 Age-related osteoporosis without current pathological fracture (principal); I10 Essential (primary) hypertension; Z86.73 Personal history of transient ischemic attack (TIA), and cerebral infarction without residual deficits; Z96.641 Presence of right artificial hip joint

== ENCOUNTER → 2021-07-06 | Outpatient (CLI) | payer MEDICARE, OTHER | END | disposition home or self-care (01) | LOC: RESCLI 01:12 | PROVIDERS: ATTEND Internal Medicine | DX: F33.41 Major depressive disorder, recurrent, in partial remission (principal); I10 Essential (primary) hypertension; E56.9 Vitamin deficiency, unspecified; J45.909 Unspecified asthma, uncomplicated; Z86.73 Personal history of transient ischemic attack (TIA), and cerebral infarction without residual deficits; E78.5 Hyperlipidemia, unspecified; I40.9 Acute myocarditis, unspecified; Z79.899 Other long term (current) drug therapy ==

== ENCOUNTER → 2021-07-23 | Outpatient (CLI) | payer MEDICARE, OTHER ==
[2021-07-23 08:31] LABS: CREATININE 0.75 mg/dL (0.55-1.02)
== END | disposition home or self-care (01) ==
LOC: MRI 08:00 → LAB 08:07 → MRI 08:07
PROVIDERS: Radiology Diagnostic Radiology; ATTEND Physician Assistant
DX: S32.028A Other fracture of second lumbar vertebra, initial encounter for closed fracture (principal); S32.038A Other fracture of third lumbar vertebra, initial encounter for closed fracture; S32.048A Other fracture of fourth lumbar vertebra, initial encounter for closed fracture; M47.816 Spondylosis without myelopathy or radiculopathy, lumbar region; M48.061 Spinal stenosis, lumbar region without neurogenic claudication; M25.78 Osteophyte, vertebrae; M89.38 Hypertrophy of bone, other site; G62.9 Polyneuropathy, unspecified; X58.XXXA Exposure to other specified factors, initial encounter; Y93.89 Activity, other specified; Y92.89 Other specified places as the place of occurrence of the external cause; Y99.8 Other external cause status

== ENCOUNTER → 2021-09-27 | Outpatient (CLI) | payer MEDICARE, OTHER | END | disposition home or self-care (01) | LOC: CT 09-26 10:00 | PROVIDERS: ATTEND Internal Medicine Critical Care Medicine | DX: J45.40 Moderate persistent asthma, uncomplicated (principal); R91.8 Other nonspecific abnormal finding of lung field; J30.89 Other allergic rhinitis; Z68.29 Body mass index [BMI] 29.0-29.9, adult ==

== ENCOUNTER 2021-12-06 16:05 | Emergency (ER) | payer MEDICARE, OTHER ==
[2021-12-06] MEDS ORDERED: [UNRECOGNIZED DRUG - REMARK] T (17:29)
[2021-12-06] MEDS ORDERED: AMOX-CLAV 875-1 EACH PO (17:29)
== END 2021-12-06 17:57 | disposition home or self-care (01) ==
LOC: ED 16:05
DX: S61.552A Open bite of left wrist, initial encounter (principal); Z79.899 Other long term (current) drug therapy; Z90.710 Acquired absence of both cervix and uterus; W54.0XXA Bitten by dog, initial encounter; Y93.89 Activity, other specified; Y92.89 Other specified places as the place of occurrence of the external cause; Y99.8 Other external cause status

== ENCOUNTER → 2022-01-21 | Outpatient (CLI) | payer MEDICARE, OTHER ==
[~2022-01-21] MED LIST changes: +AMOX-CLAV 875-1 EACH PO; +[UNRECOGNIZED DRUG - REMARK] T
== END | disposition home or self-care (01) ==
LOC: INJECTION 11:00
PROVIDERS: ATTEND Physician Assistant
DX: M81.0 Age-related osteoporosis without current pathological fracture (principal); I10 Essential (primary) hypertension; Z86.73 Personal history of transient ischemic attack (TIA), and cerebral infarction without residual deficits

== ENCOUNTER → 2022-07-11 | Outpatient (CLI) | payer MEDICARE, OTHER | END | disposition home or self-care (01) | LOC: RESCLI 01:47 | PROVIDERS: ATTEND Student in an Organized Health Care Education/Training Program | DX: M81.0 Age-related osteoporosis without current pathological fracture (principal); I10 Essential (primary) hypertension; E78.5 Hyperlipidemia, unspecified; F33.41 Major depressive disorder, recurrent, in partial remission; J45.909 Unspecified asthma, uncomplicated; Z86.73 Personal history of transient ischemic attack (TIA), and cerebral infarction without residual deficits; Z98.890 Other specified postprocedural states; Z79.899 Other long term (current) drug therapy ==

== ENCOUNTER → 2023-03-19 | Outpatient (CLI) | payer MEDICARE, OTHER ==
[2023-03-19 08:30] VITALS: BP 162/99
== END | disposition home or self-care (01) ==
LOC: INJECTION 02:32
PROVIDERS: ATTEND Physician Assistant
DX: M85.80 Other specified disorders of bone density and structure, unspecified site (principal); I10 Essential (primary) hypertension; Z86.73 Personal history of transient ischemic attack (TIA), and cerebral infarction without residual deficits

== ENCOUNTER → 2023-07-02 | Outpatient (CLI) | payer MEDICARE, OTHER | END | disposition home or self-care (01) | LOC: RESCLI 01:23 | PROVIDERS: ATTEND Internal Medicine | DX: M81.0 Age-related osteoporosis without current pathological fracture (principal); I63.9 Cerebral infarction, unspecified; K21.9 Gastro-esophageal reflux disease without esophagitis; L40.9 Psoriasis, unspecified; E78.5 Hyperlipidemia, unspecified; M54.50 Low back pain, unspecified; J45.909 Unspecified asthma, uncomplicated; I10 Essential (primary) hypertension; M85.80 Other specified disorders of bone density and structure, unspecified site; F33.41 Major depressive disorder, recurrent, in partial remission; Z82.49 Family history of ischemic heart disease and other diseases of the circulatory system; Z98.890 Other specified postprocedural states; Z79.899 Other long term (current) drug therapy ==

== ENCOUNTER → 2023-10-08 | Outpatient (CLI) | payer MEDICARE, OTHER ==
[~2023-10-08] MED LIST changes: +DENOSUMAB 60 MG/ML SYRINGE SC ONE
[2023-10-08 08:04] VITALS: BP 136/60
== END | disposition home or self-care (01) ==
LOC: INJECTION 00:56
PROVIDERS: ATTEND Physician Assistant
DX: M85.80 Other specified disorders of bone density and structure, unspecified site (principal); I10 Essential (primary) hypertension; F32.A Depression, unspecified; Z86.73 Personal history of transient ischemic attack (TIA), and cerebral infarction without residual deficits

== ENCOUNTER → 2023-10-10 | Outpatient (CLI) | payer MEDICARE, OTHER ==
[~2023-10-10] MED LIST changes: -DENOSUMAB 60 MG/ML SYRINGE SC ONE
== END | disposition home or self-care (01) ==
LOC: MRI 00:38
PROVIDERS: ATTEND Physical Medicine & Rehabilitation
DX: M47.26 Other spondylosis with radiculopathy, lumbar region (principal); M48.56XA Collapsed vertebra, not elsewhere classified, lumbar region, initial encounter for fracture; M47.817 Spondylosis without myelopathy or radiculopathy, lumbosacral region; M48.07 Spinal stenosis, lumbosacral region

== ENCOUNTER → 2024-04-05 | Outpatient (CLI) | payer MEDICARE, OTHER | END | disposition home or self-care (01) | LOC: RAD 02:43 | PROVIDERS: ATTEND Physician Assistant | DX: M81.0 Age-related osteoporosis without current pathological fracture (principal); G62.9 Polyneuropathy, unspecified; M79.604 Pain in right leg; M85.80 Other specified disorders of bone density and structure, unspecified site; I10 Essential (primary) hypertension; R20.0 Anesthesia of skin; F33.41 Major depressive disorder, recurrent, in partial remission; J45.909 Unspecified asthma, uncomplicated; E78.5 Hyperlipidemia, unspecified; Z79.899 Other long term (current) drug therapy; M79.605 Pain in left leg; R20.2 Paresthesia of skin; Z86.73 Personal history of transient ischemic attack (TIA), and cerebral infarction without residual deficits; Z78.0 Asymptomatic menopausal state ==

== ENCOUNTER → 2024-05-25 | Outpatient (CLI) | payer MEDICARE, OTHER ==
[~2024-05-25] MED LIST changes: +DENOSUMAB 60 MG/ML SYRINGE SC ONE
[2024-05-25 09:11] VITALS: BP 150/68
== END ==
LOC: INJECTION 01:42
PROVIDERS: ATTEND Physician Assistant
DX: M85.80 Other specified disorders of bone density and structure, unspecified site (principal)

== ENCOUNTER 2024-06-21 10:10 | Emergency (ER) | payer MEDICARE, OTHER ==
[~2024-06-21] VITALS: Ht 167.6 cm; Wt 81.6 kg
[~2024-06-21 10:10] MED LIST changes: -DENOSUMAB 60 MG/ML SYRINGE SC ONE
[2024-06-21 10:46] LABS: BASO % 0.3 % (0.0-1.0); EOS % 0.4 % (1.0-4.0); HEMATOCRIT 42.3 % (37.0-47.0); MEAN CELL VOLUME 96.1 fl (81.0-99.0); MEAN CORPUSCULAR HGB 31.8 pg (27.0-31.0); MEAN CORPUSCULAR HGB CONC 33.1 g/dl (33.0-37.0); MONO # 0.6 10*3/uL (0.1-1.0); MONO % 7.8 % (3.0-9.0); NEUT # 4.4 10*3/uL (2.3-7.9); NEUT % 60.9 % (47.0-73.0); PLATELET COUNT AUTOMATED 243 10*3/uL (130-400); RED CELL DISTRI WIDTH 13.4 % (0-14.5); WHITE BLOOD COUNT 7.2 10*3/uL (4.8-10.8)
[2024-06-21 11:07] LABS: ALKALINE PHOSPHATASE 104 U/L (46-116); BUN 15 mg/dl (9-23); CHLORIDE 97 mmol/L (98-107); POTASSIUM 3.6 mmol/L (3.4-5.1); SGPT/ALT 20 U/L (5-49); TOTAL PROTEIN 6.7 gm/dL (6.0-8.0)
[2024-06-21 11:10] LABS: ACT PARTIAL THROMBO TIME 28.5 SECONDS (20.0-32.1)
[2024-06-21] MEDS ORDERED: AVPAK AZITHROM250 M1 PO (11:38)
[2024-06-21] MEDS ORDERED: BENZONATATE100 M1 PO (11:38)
== END 2024-06-21 11:47 | disposition home or self-care (01) ==
LOC: ED 10:10
PROVIDERS: Internal Medicine
DX: J20.5 Acute bronchitis due to respiratory syncytial virus (principal); Z20.822 Contact with and (suspected) exposure to COVID-19; J45.909 Unspecified asthma, uncomplicated; I10 Essential (primary) hypertension; E78.5 Hyperlipidemia, unspecified; R26.89 Other abnormalities of gait and mobility; Z79.899 Other long term (current) drug therapy; Z96.641 Presence of right artificial hip joint; Z90.710 Acquired absence of both cervix and uterus; Z86.73 Personal history of transient ischemic attack (TIA), and cerebral infarction without residual deficits

== ENCOUNTER → 2024-11-29 | Outpatient (CLI) | payer MEDICARE, OTHER ==
[~2024-11-29] MED LIST changes: +AVPAK AZITHROM250 M1 PO; +BENZONATATE100 M1 PO; +DENOSUMAB 60 MG/ML SYRINGE SC ONE; +DULERA 100 MCG-13 GM INH
[2024-11-29 09:29] VITALS: BP 166/66
== END ==
LOC: INJECTION 01:51
PROVIDERS: ATTEND Physician Assistant
DX: M81.0 Age-related osteoporosis without current pathological fracture (principal); I10 Essential (primary) hypertension; F32.A Depression, unspecified; Z90.710 Acquired absence of both cervix and uterus; Z86.73 Personal history of transient ischemic attack (TIA), and cerebral infarction without residual deficits

== ENCOUNTER → 2025-02-23 | Outpatient (CLI) | payer MEDICARE, OTHER ==
[~2025-02-23] MED LIST changes: -DENOSUMAB 60 MG/ML SYRINGE SC ONE
== END | disposition home or self-care (01) ==
LOC: US 02:42
PROVIDERS: ATTEND Physician Assistant
DX: I65.23 Occlusion and stenosis of bilateral carotid arteries (principal); R55 Syncope and collapse; R19.7 Diarrhea, unspecified; E56.9 Vitamin deficiency, unspecified